=== PATIENT | female | born 1995 | race Caucasian/White ===

== ENCOUNTER 2022-03-21 10:19 | Outpatient (CLI) | payer BC, SELFPAY ==
[2022-03-21 11:41] LABS: Hematocrit 31.8 % (37.0-47.0); Hemoglobin 10.7 g/dL (12.0-15.0)
[2022-03-21 11:51] LABS: Glucose 1 Hour PP 50gm Dose 122 mg/dL
[2022-03-21 12:33] LABS: HIV 1/2 Ab P24 Ag Result Negative (Negative)
[2022-03-23] MEDS: RHO(D) IMMUNE GLOBULIN 300 MCG/2 ML SYRINGE IM (17:05)
== END 2022-03-21 10:20 | disposition home or self-care (01) ==
PROVIDERS: Visit Provider Obstetrics & Gynecology
DX: O36.0130 Maternal care for anti-D [Rh] antibodies, third trimester, not applicable or unspecified (principal); Z36.89 Encounter for other specified antenatal screening; Z3A.00 Weeks of gestation of pregnancy not specified
CPT/HCPCS: 36415; 82947; 85014; 85018; 85461; 86703; 90384; 96372; G0432; J2790

== ENCOUNTER 2022-05-25 15:23 | Emergency (ER) | payer BC, SELFPAY ==
[2022-05-25 15:32] VITALS: BP 98/66; PULSE 136; RESP 20; TEMP 37.2; O2SAT 100
--- NOTE | 2022-05-25 15:35 | ED.URI ---
HPI - URI/Sore Throat General Chief Complaint: Upper Respiratory Infection Stated Complaint: vomitting,cough,congestion,headache Time Seen by Provider: 05/25/22 15:32 Source: patient and RN notes reviewed Mode of arrival: ambulatory Limitations: no limitations History of Present Illness HPI Narrative: 26-year-old female who is in her 3rd trimester presents eyes concern for fever, chills, sweats, nasal congestion, rhinorrhea, body aches that started on Wednesday night. She reports exposure influenza a on Wednesday. She denies taking any medications for her symptoms MD elicited complaint: cough and sore throat Related Data Allergies Allergy/AdvReac Type Severity Reaction Status Date / Time No Known Allergies Allergy Mild Verified 05/25/22 15:36 Review of Systems Review of Systems: CONSTITUTIONAL: Reports malaise, fever. EYES: Denies visual changes, redness, or discharge. ENT: Reports rhinorrhea, congestion. Denies sinus pain, otalgia and sore throat. CARDIOVASCULAR: Denies chest pain, palpitations, or edema. RESPIRATORY: Reports cough. Denies dyspnea. GASTROINTESTINAL: Denies abdominal pain, nausea, vomiting, diarrhea SKIN: Denies rash or itching. MUSCULOSKELETAL: Reports myalgia. NEUROLOGIC: Denies headache. All systems reviewed & are unremarkable except as noted in HPI and below [facility] Family History Family History (Updated 05/09/22 @ 15:42 by Samantha Williamson RN) Grandparent Heart attack Diabetes mellitus Grandparent Diabetes mellitus Social History Social History Substance use: never Spiritual care concerns: No Comments At time of signature, agree with nursing past medical, surgical, social and family history. There is no relevant family history pertinent to the presenting complaint Exam Narrative: GENERAL: Nontoxic-appearing and in no acute distress. HEAD: Normocephalic EYES: PERRLA, conjunctivae clear ENT: Nares clear, turbinates edematous and erythematous, clear discharge. Mucous membranes moist. TM pearly johnson with dull light reflex bilaterally; no tragal tenderness. Oropharynx not erythematous without lesions. Tonsils not enlarged and without exudate, no drooling, no hoarseness, no trismus, uvula midline. NECK: Supple. No lymphadenopathy CHEST: Clear to auscultation, breath sounds equal. No wheezing, rhonchi, rales, or stridor. No respiratory distress, speaks in full sentences. HEART: Regular rate and rhythm. No murmur heard. SKIN: Warm, dry, no rash. NEURO: Alert and oriented x3. PSYCH: Normal mood and affect Course Course Emergency Course: Patient is aware of diagnosis, understands and agrees to treatment plan. Anticipatory guidance given. Patient agrees to follow-up as directed and is aware of reasons to seek care at the emergency department. Portions of this record may have been created with voice recognition software Level of Care: Express Care Visit Vital Signs Vital signs: Vital Signs Temperature 98.9 F 05/25/22 15:32 Pulse Rate 136 H 05/25/22 15:32 Respiratory Rate 20 05/25/22 15:32 Blood Pressure 98/66 L 05/25/22 15:32 Pulse Oximetry 100 05/25/22 15:32 Temperature 98.9 F 05/25/22 15:32 Pulse Rate 136 H 05/25/22 15:32 Respiratory Rate 20 05/25/22 15:32 Blood Pressure 98/66 L 05/25/22 15:32 Pulse Oximetry 100 05/25/22 15:32 Reviewed. MDM - URI/Sore Throat MDM Narrative Medical decision making narrative: Differential diagnosis considered: [place] virus, strep pharyngitis, allergic rhinitis, upper respiratory tract infection, sinusitis, rhinosinusitis, nasopharyngitis. viral pharyngitis, otitis media, otitis externa, pneumonia, bronchitis, viral cough syndrome, viral syndrome, and influenza. Exam findings show no acute concerns or changes; patient is non-toxic appearing and is in no distress. Patient is appropriate for outpatient treatment and follow-up. Lab Data Attestation: I reviewed the patient's lab results. Critical Care Time
== END 2022-05-25 15:49 | disposition home or self-care (01) ==
PROVIDERS: Emergency Provider Nurse Practitioner
DX: J10.1 Influenza due to other identified influenza virus with other respiratory manifestations (principal)
CPT/HCPCS: 87804; 99213; G0463

== ENCOUNTER 2022-06-02 06:33 | Inpatient (IN) | payer BC, SELFPAY ==
[2022-06-02] VITALS (203 sets, daily range): BP systolic 88–165; BP diastolic 41–95; PULSE 63–235; RESP 18; TEMP 36.6–37.3; O2SAT 74–100; BMI 31.0
--- NOTE | 2022-06-02 06:33 | LDADM ---
This patient, Ethel Carlin, was admitted to Labor/Delivery/Recovery 104 on 06/02/22 at 06:33. Plans for labor, pain management and were discussed with patient. Patient/family oriented to hospital policies and general routines including ID bracelet, bed and alarms, visiting hours, pain management, procedures, bathroom and other care routines, personal items, smoking policy, room service/diet and guest tray routines, infant security routines, and visiting hours. Patient/Family are encouraged to report perceived risks to care and to ask questions if they do not understand what they are told or what they should do. See OBIX for further documentation.
[2022-06-02 07:18] LABS: Basophils Percent Auto 0.2 % (0.2-1.2); Eosinophils Absolute Auto 0.1 K/mm3 (0-0.3); Eosinophils Percent Auto 1.1 % (0-4.4); Hematocrit 30.7 % (37.0-47.0); Immature Granulocyte Absolute 0.03 K/mm3 (0.00-0.031); Immature Granulocyte Percent A 0.5 % (0-0.5); Lymphocytes Absolute Auto 1.65 K/mm3 (0.9-3.2); Lymphocytes Percent Auto 25.6 % (18.3-44.2); Mean Corpuscular HGB Conc 32.6 g/dl (32-36); Mean Corpuscular Hemoglobin 27.5 pg (26-34); Mean Corpuscular Volume 84.6 fl (80-100); Mean Platelet Volume 11.8 fl (7.4-10.4); Monocytes Absolute Auto 0.3 K/mm3 (0.1-0.6); Monocytes Percent Auto 4.8 % (2.6-8.5); Neutrophils Absolute Auto 4.4 K/mm3 (1.3-6.7); Neutrophils Percent Auto 67.8 % (45.5-73.1); Platelet Count Result 170 k/mm3 (150-375); Red Blood Count 3.63 M/mm3 (4.2-5.4); Red Cell Distribution Width 15.1 % (11.5-14.5); White Blood Count 6.4 K/mm3 (4.5-10.0)
[2022-06-02] MEDS: LACTATED RINGERS 1,000 ML 125 ML IV CONT ×2 (07:37→10:29)
[2022-06-02] MEDS: OXYTOCIN 30 UNITS/NS 500 ML 30 UNITS/500 ML BAG 6 UNITS IV CONT (07:37)
[2022-06-02] MEDS: AMPICILLIN 2 GM/NS 100 ML 2 GM/100 ML BAG IVPB (07:42)
--- NOTE | 2022-06-02 07:54 | WPDHPUPDATE1 ---
History and Physical Update Update Date/Time: 06/02/22 07:54 26-year-old 2 para 0 at term who presents for elective induction of labor. She reassuring heart tones, cervix is 2-3/80/-2 artificial rupture membranes was performed. Clear fluid. Expectant management. History and Physical has been reviewed, including an updated exam of the patient. There are NO changes in the patient's condition. Risks, benefits, and alternatives have been discussed and questions answered. Patient agrees to proceed with procedure.
--- NOTE | 2022-06-02 10:29 | WPDANESEPPF ---
Anes - Initial Pre Proc Eval Date/Time: 06/02/22 10:29 Surgeon: Mingo Boyle MD Pre Op Diagnosis: iol Patient Data Age: 26 Gender: F Height: 1.57 m Weight: 77 kg Last Vital Signs Pulse 90 06/02/22 10:28 BP 118/85 06/02/22 10:28 Pulse Ox 100 06/02/22 10:27 Allergies Allergy/AdvReac Type Severity Reaction Status Date / Time No Known Allergies Allergy Mild Verified 05/25/22 15:36 Home Medications Medication Instructions Recorded Confirmed Type vits no.126-ferrous fum 1 tablet PO DAILY 06/02/22 06/02/22 History 28 mg iron-folic acid 800 mcg tablet (Classic ) Laboratory Tests 06/02/22 06/02/22 06/02/22 07:04 07:04 07:04 WBC 6.4 K/mm3 K/mm3 (4.5-10.0) RBC 3.63 M/mm3 L M/mm3 (4.2-5.4) Hgb 10.0 g/dL L g/dL (12.0-15.0) Hct 30.7 % L % (37.0-47.0) MCV 84.6 fl fl (80-100) MCH 27.5 pg pg (26-34) MCHC 32.6 g/dl g/dl (32-36) RDW 15.1 % H % (11.5-14.5) Plt Count 170 k/mm3 k/mm3 (150-375) MPV 11.8 fl H fl (7.4-10.4) Immature Gran % (Auto) 0.5 % % (0-0.5) Neut % (Auto) 67.8 % % (45.5-73.1) Lymph % (Auto) 25.6 % % (18.3-44.2) Delta % (Auto) 4.8 % % (2.6-8.5) Eos % (Auto) 1.1 % % (0-4.4) Baso % (Auto) 0.2 % % (0.2-1.2) Lymph # (Auto) 1.65 K/mm3 K/mm3 (0.9-3.2) Delta # (Auto) 0.3 K/mm3 K/mm3 (0.1-0.6) Eos # (Auto) 0.1 K/mm3 K/mm3 (0-0.3) Baso # (Auto) 0.0 K/mm3 K/mm3 (0.0-0.1) Abs Immat Gran (auto) 0.03 K/mm3 K/mm3 (0.00-0.031) Absolute Neuts (auto) 4.4 K/mm3 K/mm3 (1.3-6.7) Absolute Nucleated RBC 0.0 K/mm3 K/mm3 (0.0-0.012) Nucleated RBC % 0.0 % % (0.0-0.2) RPR Pending Blood Type O Negative Antibody Screen Positive Antibody Identification Pending Antigen Identification Pending LOIS, IgG Interpret Pending LOIS, Poly Interpret Pending LOIS, Complement Interp Pending Patient hx anesthesia problems: none Family hx anesthesia problems: none Results Review: All pre-operative results and documents have been reviewed as part of the pre-operative evaluation. [facility] Family History Family History Grandparent Heart attack Diabetes mellitus Grandparent Diabetes mellitus Social History Social History Smoking status: Never smoker Substance use: never Lack of Transportation: No Lack of Food: Never True Current Housing: I Have Housing Concerned About Future Housing: No Difficulty Paying Gas/Electric Bills: No Difficulty Paying for Meds: No Currently Unemployed: No Education: Bachelor's Degree Difficulty w/ Childcare or Family Care: No Spiritual care concerns: No Anes - Eval Final PreProcedure Day of Procedure 06/02/22 10:29 Patient weight: overweight Heart: regular rate and rhythm Lungs: clear to auscultation Neurological: alert and oriented ASA classification: II Emergent: no Anesthetic plan: proceed Anesthesia type and monitoring: regional epidural and standard monitoring Results Review: All pre-operative results and documents have been reviewed as part of the pre-operative evaluation. Informed Consent: The patient's anesthetic plan and its attendant risks and benefits were discussed with the patient/family/POA. Questions were solicited and answers provided to the satisfaction of the patient/family/POA.
[2022-06-02 11:29] LABS: Rapid Plasma Reagin Non-Reactive (NonReactive)
[2022-06-02] MEDS: AMPICILLIN 1 GM/NS 50 ML 1 GM/50 ML BAG IVPB ×2 (11:36→16:22)
--- NOTE | 2022-06-02 19:46 | PM.OBPRVD ---
OB - Delivery Note Procedure Procedure: Induction method: AROM and Per Pitocin Protocol Delivery monitor: External FHT and External Uterine Route of delivery: Episiotomy description: None Laceration Description: Vaginal Delivery repair: vicryl Quantitative Blood Loss (ml): 450 Anesthesia type: Epidural Baby Date of : 06/02/22 Time of : 19:27 Weeks of gestation at delivery: 39 Infant gender: Female Weight (pounds): 7 Weight (ounces): 1 Placenta delivery description: Spontaneous score one minute: 9 score five minutes: 9
--- NOTE | 2022-06-02 22:05 | OBPPTRN ---
Patient transferred to post room #281 via W/C. Support person present. Oriented to unit, room, information board, rooming in, admission packet and security measures. Patient verbalizes understanding.
[2022-06-03 04:10] VITALS: BP 108/67; PULSE 87; RESP 18; TEMP 36.8
[2022-06-03 05:17] LABS: Hematocrit 25.2 % (37.0-47.0); Hemoglobin 8.1 g/dL (12.0-15.0)
--- NOTE | 2022-06-03 07:50 | PM.OBPNVD ---
OB - PN: Subj Subjective Date/time seen: 06/03/22 07:50 s/p vaginal delivery OB - PN: Obj Data Labs 06/03/22 04:08 Labs: Laboratory Results - last 24 hr 06/02/22 06/02/22 06/03/22 07:04 07:04 04:08 Hgb 8.1 L Hct 25.2 L RPR Non-reactive Blood Type O Negative Antibody Screen Positive Antibody Identification Inconclusive Antigen Identification Cancelled LOIS, IgG Interpret Not Performed LOIS, Poly Interpret Neg LOIS, Complement Interp Not Performed Baby's Blood Type Baby's LOIS 06/03/22 04:08 Hgb Hct RPR Blood Type O Negative Antibody Screen TNP Antibody Identification Antigen Identification LOIS, IgG Interpret LOIS, Poly Interpret LOIS, Complement Interp Baby's Blood Type O pos Baby's LOIS Negative OB - PN A/P Plan day: 1 Time Spent With Patient Time: Total time spent is greater than 50% in coordination of care (as documented) at patient's floor/unit and/or counseling patient: Review of Systems Review of Systems: All systems reviewed & are unremarkable except as noted in HPI and below Exam Const: General: cooperative, healthy appearing and comfortable
[2022-06-03 08:10] VITALS: BP 112/71; PULSE 84; RESP 18; TEMP 36.9; O2SAT 97
--- NOTE | 2022-06-03 09:54 | WPDANLDPN2 ---
Anes-Prog Note L&D Date/Time: 06/03/22 09:54 Comfortable throughout: labor Neuraxial method: epidural Epidural/Spinal procedure site: clean & non-tender Neuro status: Neuro function grossly intact. Cardiovascular status: normal Respiratory status: normal Airway patency: baseline Mental status: baseline Post-Op hydration status: normal Vital Signs: Last Vital Signs Temp 98.4 F 06/03/22 08:10 Pulse 84 06/03/22 08:10 Resp 18 06/03/22 08:10 BP 112/71 06/03/22 08:10 Pulse Ox 97 06/03/22 08:10 O2 Del Method Room Air 06/02/22 22:15 Pain score (VAS): 0 Patient feedback: Patient satisfied with anesthetic care.
[2022-06-03] MEDS: MULTIVIT/MIN/PREN/FOL AC/IRON TABLET 1 TAB PO (10:20)
[2022-06-03] MEDS: POLYSACCHARIDE IRON COMPLEX 150 MG CAPSULE PO ×2 (10:21→20:15)
[2022-06-03] MEDS: DOCUSATE SODIUM 100 MG CAPSULE PO ×2 (10:21→20:15)
[2022-06-03 12:00] VITALS: BP 124/73; PULSE 100; RESP 18; TEMP 36.2; O2SAT 98
[2022-06-03] MEDS: RHO(D) IMMUNE GLOBULIN 300 MCG/2 ML SYRINGE IM (15:05)
[2022-06-03 17:40] VITALS: BP 114/74; PULSE 81; RESP 16; TEMP 36.7; O2SAT 99
[2022-06-03 20:15] VITALS: BP 114/70; PULSE 83; RESP 16; TEMP 36.7; O2SAT 97
[2022-06-04 08:00] VITALS: BP 114/74; PULSE 77; RESP 18; TEMP 37.4; O2SAT 99
--- NOTE | 2022-06-04 08:29 | PM.OBPNVD ---
OB - PN: Subj Subjective Date/time seen: 06/04/22 08:29 Patient comments: no complaints, pain well controlled and tolerating diet OB - PN: Obj Data Labs 06/03/22 04:08 Labs: Laboratory Results - last 24 hr 06/03/22 04:08 Blood Type O Negative Antibody Screen TNP Screen Negative Baby's Blood Type O pos Baby's LOIS Negative Doses of RhIg Required 1 OB - PN A/P Plan day: 2 Plan: routine care and discharge home Time Spent With Patient Time: Total time spent is greater than 50% in coordination of care (as documented) at patient's floor/unit and/or counseling patient: Exam Const: General: comfortable and no acute distress Resp: Effort & Inspection: normal respiratory effort Auscultation: no rales, no rhonchi and no wheezes Cardio: Rate: regular rate Heart sounds: no click, no murmurs and no rubs GI: GI Palp: Yes Soft to palpation and No Tenderness to palpation present (GI) Auscultation: normal bowel sounds Extrem: General: normal to inspection, no pedal edema and no calf tenderness
--- NOTE | 2022-06-04 08:30 | PM.OBDSVD ---
DS: Admitting Diagnosis Discharge Date 06/04/22 Admitting Diagnosis term OB - DS: Summary OB Procedures : None OB Procedures Intrapartum: OB Procedures: : None Time Spent with Patient Time attestation: Total time spent providing and/or coordinating discharge services: DS: Data Data Completed and Pending Labs on day of discharge: Labs from last 24 hours 06/03/22 04:08 Blood Type O Negative Antibody Screen TNP Screen Negative Baby's Blood Type O pos Baby's LOIS Negative Doses of RhIg Required 1 Discharge Plan Discharge Discharging Clinician: Mingo Boyle Patient Disposition: Home, Self-Care Activity: pelvic rest Diet: regular Discharge Instructions: Education: Mom and Baby Guide Given to: Mother Follow-Up: Call your delivering provider's office for an appointment to be seen in: 6 Weeks Mom and baby [facility] come [facility] for the follow-up appointment. Appointment Date/Time: June 05, 2022 at 11:00 am What to expect at your follow-up visit: Blood Pressure Check Call [phone] if you are unable to keep your appointment time. BREAST CARE: * Wear a snug supportive bra. * For engorgement discomfort: Breast Feeding: * Apply warm moist washcloths * Express milk as needed to relieve engorgement * Wear loose clothing Bottle Feeding: * May apply ice packs * For sore nipples: * Identify correct latch-on * Apply warm moist washcloths before and after nursing * Air dry nipples after nursing * May apply Lansinoh cream to nipples /PERINEAL CARE: * Until bleeding stops, use your destiny bottle after urinating * Change your pad frequently throughout the day * You may take sitz baths several times a day (fill your bathtub with warm water and soak for 20 minutes.) Do NOT bathe in the water * No tub baths until seen by your physician - You may shower ACTIVITY: * Rest as much as possible. * Do not exercise or lift anything heavier than your baby (such as laundry or other children.) * Avoid stairs or driving as much as possible. * Do not put anything into the vagina. No douching, tampons, or sexual activity until seen by physician. NOTIFY PHYSICIAN IF YOU HAVE ANY QUESTIONS OR IF ANY OF THE FOLLOWING SYMPTOMS OCCUR: * If your perineum becomes red, swollen, or more painful than what you have experienced in the hospital. * If your vaginal bleeding becomes foul smelling. * If your vaginal bleeding becomes more heavy than a period or if your bleeding changes from pink to bright red. However, you may pass an occasional walnut-sized clot once or twice for the first week . * If you experience a sharp, shooting pain in you calves. * If you discover a hard, reddened area on your breast or if you experience flu-like symptoms. * If you have a fever of 100.4 or greater DIET: * Eat regular, well-balanced meals. * Drink plenty of fluids daily. If , drink to thirst. Patient Instructions: Antibiotic Form Stand Alone Forms: General Discharge Information Follow-up/Referrals: Mingo Boyle MD [Physician] - Discharge Medications: No Action Classic 28 mg iron- 800 mcg Tablet 1 tablet PO DAILY Date of admission: 06/02/22 06:33 Primary Care Provider: UNKNOWN,DOCTOR Admitting Provider: Mingo Boyle Attending physician on admission: Mingo Boyle Condition: Stable
[2022-06-04 09:00] VITALS: PULSE 77; RESP 18; O2SAT 99
--- NOTE | 2022-06-04 09:00 | PC.NURSE ---
PT introductions made and plan of care discussed per post , pain management, breast feeding, bottle feeding, daily care activities and pending discharge to home. PT and spouse both recipients of such instructions and no barriers to learning identified at this time. PT received such instructions per one to one discussion , mom baby care guide and demonstrations this shift. PT verbalized understanding of such care.
[2022-06-04] MEDS: LANOLIN (LANSINOH) 7.5 GM CREAM 1 APPLIC TOPICAL (09:53)
[2022-06-04] MEDS: DOCUSATE SODIUM 100 MG CAPSULE PO (09:53)
[2022-06-04] MEDS: POLYSACCHARIDE IRON COMPLEX 150 MG CAPSULE PO (09:53)
[2022-06-04] MEDS: MULTIVIT/MIN/PREN/FOL AC/IRON TABLET 1 TAB PO (09:53)
[2022-06-04] MEDS: TETANUS,DIPHTHERIA,AC PERTUSSIS ADULT (0.5 ML) BOOSTRIX IM (09:54)
--- NOTE | 2022-06-04 12:52 | PC.NURSE ---
PT discharged to home ambulatory accompanied by both spouse and infant and taken to waiting car. follow up appts confirmed
[2022-06-05 11:25] VITALS: BP 124/85; PULSE 101; RESP 20; TEMP 36.8; O2SAT 99
== END 2022-06-04 12:52 | disposition home or self-care (01) | DRG 807 ==
LOC: ANHLDR 06:36 → ANHOB2 22:07
PROVIDERS: Admitting Provider Obstetrics & Gynecology; Visit Provider Obstetrics & Gynecology
DX: O99.824 Streptococcus B carrier state complicating childbirth (principal); Z37.0 Single live birth; Z3A.39 39 weeks gestation of pregnancy; O69.81X0 Labor and delivery complicated by cord around neck, without compression, not applicable or unspecified; O71.4 Obstetric high vaginal laceration alone
CPT/HCPCS: 36415; 85014; 85018; 85025; 85461; 86592; 86850; 86880; 86900; 86901; 86902; 90384; 90715; A9270; J0290; J2590; J2790; J2795; J7120

== ENCOUNTER 2023-04-17 10:59 | Emergency (ER) | payer BC, SELFPAY ==
[2023-04-17 11:25] VITALS: BP 114/75; PULSE 87; RESP 16; TEMP 36.9; O2SAT 99
--- NOTE | 2023-04-17 12:10 | ED.EYEPROB ---
HPI - Eye Problem General Chief complaint: Eye Problems Stated complaint: pink eye Source: patient, RN notes reviewed and old records reviewed Mode of arrival: ambulatory Limitations: no limitations History of Present Illness HPI Narrative: 27 year old female who presents t express care with complaints of redness and some mucous drainage from her left eye which stared this morning. Daughter is with patient who also has drainage from her eyes for the past 2 days. Patient reports no acute pain to her left eye or any change in vision. MD chief complaint: eye redness Onset (ago): day(s) (this morning) Location: left eye Eye Symptoms: redness and discharge Severity scale (1-10): 2 If Pain, Quality: other (itching and soreness) Related Data Home Medications Medication Instructions Recorded Confirmed amoxicillin 500 mg capsule 500 mg PO DAILY 04/17/23 04/17/23 Allergies Allergy/AdvReac Type Severity Reaction Status Date / Time No Known Allergies Allergy Mild Verified 04/17/23 11:56 Review of Systems Review of Systems: CONSTITUTIONAL: Denies fever, chills, or sweats. EYES: Denies visual changes. Reports redness, irritation, discharge left eye. ENT: Denies rhinorrhea, congestion, sore throat, or otalgia. CARDIOVASCULAR: Denies chest pain, palpitations, or edema. RESPIRATORY: Denies cough or dyspnea. SKIN: Denies rash or itching. NEUROLOGIC: Denies headache PMFSH Past Medical History Medical History (Updated 04/18/23 @ 19:34 by Suyapa Adams NP) UTI (urinary tract infection) Surgical History Surgical History (Updated 04/18/23 @ 19:34 by Suyapa Adams NP) History of repair of anterior cruciate ligament of left knee x2 S/P wisdom tooth extraction Family History Family History Grandparent Heart attack Diabetes mellitus Grandparent Diabetes mellitus Social History Social History Smoking status: Never smoker Substance use: never Lack of Transportation: No Lack of Food: Never True Current Housing: I Have Housing Concerned About Future Housing: No Difficulty Paying Gas/Electric Bills: No Difficulty Paying for Meds: No Currently Unemployed: No Education: Bachelor's Degree Difficulty w/ Childcare or Family Care: No Spiritual care concerns: No Comments At time of signature, agree with nursing past medical, surgical, social and family history. There is no relevant family history pertinent to the presenting complaint Exam Narrative: GENERAL: Well-appearing, well-nourished, and in no acute distress. HEAD: Normocephalic, atraumatic. EYES: PERRLA and EOMI. Upper and lower eyelids unremarkable. No periorbital cellulitis noted. Sclera and conjunctivae injected left eye ENT: Nares clear, no rhinorrhea or epistaxis. Mucous membranes moist. NECK: Supple. no lymphadenopathy CHEST: Clear to auscultation. No respiratory distress.SAO2 99% on room air HEART: Regular rate and rhythm. No murmur heard. Normal peripheral pulses. SKIN: Warm, dry, no rash. NEURO: No focal deficits. Alert and oriented x3. Course Course Emergency Course: Patient is aware of diagnosis, understands and agrees to treatment plan. Anticipatory guidance given. Patient agrees to follow-up as directed and is aware of reasons to seek care at the emergency department. Portions of this record may have been created with voice recognition software Level of Care: Express Care Visit Vital Signs Vital signs: Vital Signs Temperature 36.9 C 04/17/23 11:25 Pulse Rate 87 04/17/23 11:25 Respiratory Rate 16 04/17/23 11:25 Blood Pressure 114/75 04/17/23 11:25 Pulse Oximetry 99 04/17/23 11:25 Temperature 36.9 C 04/17/23 11:25 Pulse Rate 87 04/17/23 11:25 Respiratory Rate 16 04/17/23 11:25 Blood Pressure 114/75 04/17/23 11:25 Pulse Oximetry 99 04/17/23 11:25
== END 2023-04-17 12:15 | disposition home or self-care (01) ==
PROVIDERS: Emergency Provider Registered Nurse
DX: H10.9 Unspecified conjunctivitis (principal)
CPT/HCPCS: 99213; G0463

== ENCOUNTER 2023-12-23 08:57 | Outpatient (RCR) | payer BC, SELFPAY ==
[2023-12-23 10:45] LABS: Hematocrit 31.1 % (37.0-47.0); Hemoglobin 9.8 g/dL (12.0-15.0)
[2023-12-23 10:58] LABS: Glucose 1 Hour PP 50gm Dose 133 mg/dL
[2023-12-23 11:51] LABS: HIV 1/2 Ab P24 Ag Result Negative (Negative)
[2023-12-23] MEDS: RHO(D) IMMUNE GLOBULIN 300 MCG/2 ML SYRINGE IM (14:34)
[2023-12-23 18:22] LABS: Rapid Plasma Reagin Non-Reactive (NonReactive)
== END 2024-03-22 23:59 | disposition home or self-care (01) ==
LOC: ANHLAB 08:57
PROVIDERS: Visit Provider Obstetrics & Gynecology
DX: Z11.4 Encounter for screening for human immunodeficiency virus [HIV] (principal); Z11.3 Encounter for screening for infections with a predominantly sexual mode of transmission; Z29.13 Encounter for prophylactic Rho(D) immune globulin; O36.0130 Maternal care for anti-D [Rh] antibodies, third trimester, not applicable or unspecified; Z3A.00 Weeks of gestation of pregnancy not specified
CPT/HCPCS: 36415; 82947; 85014; 85018; 85461; 86592; 86703; 86850; 86900; 86901; 90384; 96372; G0432; J2790

== ENCOUNTER 2024-03-23 22:51 | Inpatient (IN) | payer BC, SELFPAY ==
[2024-03-23] VITALS (17 sets, daily range): BP systolic 116–128; BP diastolic 78–105; PULSE 76–100; TEMP 36.7; O2SAT 98–100
[2024-03-23] MEDS: LACTATED RINGERS 1,000 ML 125 ML IV CONT (23:20)
[2024-03-23] MEDS: AMPICILLIN 2 GM/NS 100 ML 2 GM/100 ML BAG IVPB (23:20)
[2024-03-23 23:35] LABS: Basophils Percent Auto 0.2 % (0.2-1.2); Eosinophils Absolute Auto 0.1 K/mm3 (0-0.3); Eosinophils Percent Auto 0.6 % (0-4.4); Hemoglobin 10.5 g/dL (12.0-15.0); Immature Granulocyte Absolute 0.04 K/mm3 (0.00-0.031); Immature Granulocyte Percent A 0.4 % (0-0.5); Lymphocytes Absolute Auto 2.35 K/mm3 (0.9-3.2); Lymphocytes Percent Auto 23.3 % (18.3-44.2); Mean Corpuscular HGB Conc 31.8 g/dl (32-36); Mean Corpuscular Hemoglobin 26.1 pg (26-34); Mean Corpuscular Volume 82.1 fl (80-100); Mean Platelet Volume 11.5 fl (7.4-10.4); Monocytes Absolute Auto 0.7 K/mm3 (0.1-0.6); Monocytes Percent Auto 6.5 % (2.6-8.5); Platelet Count Result 208 k/mm3 (150-375); Red Blood Count 4.02 M/mm3 (4.2-5.4); Red Cell Distribution Width 16.7 % (11.5-14.5); White Blood Count 10.1 K/mm3 (4.5-10.0)
[2024-03-24] VITALS (160 sets, daily range): BP systolic 76–139; BP diastolic 27–78; PULSE 53–135; RESP 16–18; TEMP 36.6–37.3; O2SAT 80–100; BMI 32.9
[2024-03-24 00:09] LABS: Rapid Plasma Reagin Non-Reactive (NonReactive)
--- NOTE | 2024-03-24 00:14 | WPDANESEPP ---
Anes - Eval Pre Procedure Procedure: Labor epidural Date/Time: 03/24/24 00:14 Surgeon: Tamar Preop Diagnosis: Abdominal pain with contractions Pre Op Diagnosis: IOL Patient Data Age: 28 Gender: F Height: Weight: Last Vital Signs Pulse 80 03/24/24 00:00 BP 129/72 03/24/24 00:00 Pulse Ox 80 L 03/24/24 00:13 Allergies Allergy/AdvReac Type Severity Reaction Status Date / Time No Known Allergies Allergy Mild Verified 04/17/23 11:56 Home Medications Medication Instructions Recorded Confirmed Type prenat.vits,paulina,bhq-rerg-fexoc 1 tablet 03/03/24 History Laboratory Tests 03/23/24 23:22 WBC 10.1 H K/mm3 (4.5-10.0) RBC 4.02 L M/mm3 (4.2-5.4) Hgb 10.5 L g/dL (12.0-15.0) Hct 33.0 L % (37.0-47.0) MCV 82.1 fl (80-100) MCH 26.1 pg (26-34) MCHC 31.8 L g/dl (32-36) RDW 16.7 H % (11.5-14.5) Plt Count 208 k/mm3 (150-375) MPV 11.5 H fl (7.4-10.4) Immature Gran % (Auto) 0.4 % (0-0.5) Neut % (Auto) 69.0 % (45.5-73.1) Lymph % (Auto) 23.3 % (18.3-44.2) [place] % (Auto) 6.5 % (2.6-8.5) Eos % (Auto) 0.6 % (0-4.4) Baso % (Auto) 0.2 % (0.2-1.2) Lymph # (Auto) 2.35 K/mm3 (0.9-3.2) [place] # (Auto) 0.7 H K/mm3 (0.1-0.6) Eos # (Auto) 0.1 K/mm3 (0-0.3) Baso # (Auto) 0.0 K/mm3 (0.0-0.1) Abs Immat Gran (auto) 0.04 H K/mm3 (0.00-0.031) Absolute Neuts (auto) 7.0 H K/mm3 (1.3-6.7) Absolute Nucleated RBC 0.000 K/mm3 (0.0-0.012) Nucleated RBC % 0.0 % (0.0-0.2) RPR Non-reactive (NonReactive) HIV 1&2 Ab/P24 Ag 4thGn Pending Blood Type Pending Antibody Screen Pending : gestational age HCG: positive Patient hx anesthesia problems: none Family hx anesthesia problems: none Results Review: All pre-operative results and documents have been reviewed as part of the pre-operative evaluation. [facility] Past Medical History Medical History Anxiety and depression Obesity UTI (urinary tract infection) Surgical History Surgical History History of repair of anterior cruciate ligament of left knee x2 S/P wisdom tooth extraction Family History Family History Grandparent Heart attack Diabetes mellitus Grandparent Diabetes mellitus Social History Social History Smoking status: Never smoker Substance use: never Lack of Transportation: No Lack of Food: Never True Current Housing: I Have Housing Concerned About Future Housing: No Difficulty Paying Gas/Electric Bills: No Difficulty Paying for Meds: No Currently Unemployed: No Education: Bachelor's Degree Difficulty w/ Childcare or Family Care: No Spiritual care concerns: No Exam Day of Procedure 03/24/24 00:14 Patient weight: obese Airway: Mallampati scale class II
[2024-03-24 00:27] LABS: HIV 1/2 Ab P24 Ag Result Negative (Negative)
[2024-03-24] MEDS: LACTATED RINGERS 1,000 ML 125 ML IV CONT (00:53)
--- NOTE | 2024-03-24 00:56 | LDADM ---
This patient, Ethel Carlin, was admitted to Labor/Delivery/Recovery 105 on 03/23/24 at 22:51. Plans for labor, pain management and were discussed with patient. Patient/family oriented to hospital policies and general routines including ID bracelet, bed and alarms, visiting hours, pain management, procedures, bathroom and other care routines, personal items, smoking policy, room service/diet and guest tray routines, infant security routines, and visiting hours. Patient/Family are encouraged to report perceived risks to care and to ask questions if they do not understand what they are told or what they should do. See OBIX for further documentation.
[2024-03-24] MEDS: AMPICILLIN 1 GM/NS 50 ML 1 GM/50 ML BAG IVPB (03:39)
[2024-03-24] MEDS: OXYTOCIN 30 UNITS/NS 500 ML 30 UNITS/500 ML BAG 999 UNITS IV CONT (07:30)
[2024-03-24] MEDS: miSOPROStol 200 MCG TABLET 1000 MCG (07:33)
--- NOTE | 2024-03-24 08:03 | WPDHPUPDATE1 ---
History and Physical Update Update Date/Time: 03/24/24 08:03 term labor - srom, multip History and Physical has been reviewed, including an updated exam of the patient. There are NO changes in the patient's condition. Risks, benefits, and alternatives have been discussed and questions answered. Patient agrees to proceed with procedure.
[2024-03-24] MEDS: OXYTOCIN 30 UNITS/NS 500 ML 30 UNITS/500 ML BAG 125 UNITS IV CONT (08:04)
--- NOTE | 2024-03-24 08:04 | PM.OBPRVD ---
OB - Vaginal Delivery Note Procedure Delivery date: 03/24/24 Induction method: None Delivery monitor: External FHT and External Uterine Route of delivery: Laceration Description: Perineal - 1st Degree Delivery repair: vicryl Specimen: No Anesthesia type: Epidural Disposition: Floor Complications: No immediate complications [place] Baby Date of : 03/24/24 Gestational Age by Date: 39
[2024-03-24] MEDS: BENZOCAINE 20% AER SPR (*SP) 56 GM CAN 1 SPRAY TOPICAL (10:05)
[2024-03-24] MEDS: IBUPROFEN 600 MG TABLET PO (10:05)
[2024-03-24] MEDS: ACETAMINOPHEN 325 MG TABLET 650 MG PO (10:05)
[2024-03-24] MEDS: WITCH HAZEL 40 PADS 1 PAD TOPICAL (10:05)
--- NOTE | 2024-03-24 10:55 | PC.NURSE ---
Patient transferred to post room #290 via wheelchair. Support person present. Oriented to unit, room, information board, rooming in, admission packet and security measures. Patient verbalizes understanding.
--- NOTE | 2024-03-24 11:10 | PC.NURSE ---
1055 Pt up out of bed w/standby assistance to bathroom. Bleeding scant, new gown on and pads changed. pt in wheelchair taken to PP with dad, baby, and 2 other family members with belongings. updated report given to PP nurse. pt tolerated transfer. no questions/complaints.
--- NOTE | 2024-03-24 15:57 | PC.NURSE ---
1300. Consulted with mother concerning needs and she shared her ability to independently latch infant optimally without pain. Mom reports infant just had a feed and is not due at this time, but will call with infants next latch for to come and assess latch. Reinforced understanding of milk production, transition of milk, signs of adequate intake, transition of stool, prevention/relief of engorgement, plugged ducts, mastitis, responsive watching for feeding cues, the different methods of stimulating to breastfeed 1-3 hours after the start of the last feeding, community resources, and when to call a provider using the resource of the feeding sheet along with the mom and baby guide. Mother voiced understanding of the information shared. Reported to the Primary RN.
[2024-03-25 03:00] VITALS: BP 94/62; PULSE 81; RESP 20; TEMP 36.8; O2SAT 99
[2024-03-25 03:46] LABS: Hematocrit 23.3 % (37.0-47.0); Hemoglobin 7.6 g/dL (12.0-15.0)
[2024-03-25] MEDS: IBUPROFEN 600 MG TABLET PO (06:44)
[2024-03-25] MEDS: MULTIVIT/MIN/PREN/FOL AC/IRON TABLET 1 TAB PO (06:44)
[2024-03-25] MEDS: POLYSACCHARIDE IRON COMPLEX 150 MG CAPSULE PO (06:45)
[2024-03-25] MEDS: DOCUSATE SODIUM 100 MG CAPSULE PO (06:45)
[2024-03-25 07:30] VITALS: BP 98/61; PULSE 75; RESP 18; TEMP 36.4; O2SAT 99
--- NOTE | 2024-03-25 08:38 | PM.OBPNVD ---
OB - PN: Subj Subjective Date/time seen: 03/25/24 08:38 Patient comments: no complaints, pain well controlled, incisional pain, tolerating diet and flatus present OB - PN: Obj Data Labs 03/25/24 03:29 Labs: Laboratory Results - last 24 hr 03/25/24 03:29 Hgb 7.6 L Hct 23.3 L Blood Type O Negative Antibody Screen Negative Screen Not Reportable Baby's Blood Type O pos Baby's LOIS Negative Doses of RhIg Required 1 OB - PN A/P Assessment and Plan (1) Anemia: Code(s): D64.9 - Anemia, unspecified Status: Acute Plan day: 1 Plan: routine care Comments: No problems, routine care, asymptomatic anemia - problem addressed, no blood Time Spent With Patient Time: Total time spent is greater than 50% in coordination of care (as documented) at patient's floor/unit and/or counseling patient: Exam Const: General: comfortable, no acute distress and alert Resp: Effort & Inspection: normal respiratory effort Auscultation: no crackles, no rales and no rhonchi Cardio: Rate: regular rate Heart sounds: no click, no murmurs and no rubs GI: Inspection: non-distended GI Palp: No Tenderness to palpation present (GI) Auscultation: normal bowel sounds Other: Incision - CDI Extrem: General: normal to inspection, no pedal edema and no calf tenderness
--- NOTE | 2024-03-25 08:39 | PM.OBDSVD ---
DS: Admitting Diagnosis Discharge Date 03/25/24 Admitting Diagnosis term DS: Discharge Diagnosis Discharge Diagnosis (1) Term delivered: Code(s): O80 - Encounter for full-term uncomplicated delivery Status: Acute OB - DS: Summary OB Procedures : None OB Procedures Intrapartum: Spontaneous Vag Delivery OB Procedures: : None Peripartum Data Laceration Description: Perineal - 1st Degree Time Spent with Patient Time attestation: Total time spent providing and/or coordinating discharge services: DS: Data Data Completed and Pending Labs on day of discharge: Labs from last 24 hours 03/25/24 03:29 Hgb 7.6 L Hct 23.3 L Blood Type O Negative Antibody Screen Negative Screen Not Reportable Baby's Blood Type O pos Baby's LOIS Negative Doses of RhIg Required 1 Discharge Plan Discharge Discharging Clinician: Orion Boyle Patient Disposition: Home, Self-Care Activity: as tolerated Diet: as tolerated Discharge Instructions: Education: Mom and Baby Guide Given to: Mother Follow-Up: Call your delivering provider's office for an appointment to be seen in: 4 Weeks Mom and baby should come to the [facility] for the follow-up appointment. Appointment Date/Time: March 27, 2024 at 11:00 am What to expect at your follow-up visit: Call [phone] if you are unable to keep your appointment time. BREAST CARE: * Wear a snug supportive bra. * For engorgement discomfort: Breast Feeding: * Apply warm moist washcloths * Express milk as needed to relieve engorgement * Wear loose clothing Bottle Feeding: * May apply ice packs * For sore nipples: * Identify correct latch-on * Apply warm moist washcloths before and after nursing * Air dry nipples after nursing * May apply Lansinoh cream to nipples ABDOMINAL INCISION: (if applicable) * Allow incision to air dry * Do NOT use lotions for powders on your incision * When showering, allow soap and water to run over the incision, but do not wash incision EPISIOTOMY/PERINEAL CARE: * Until bleeding stops, use your destiny bottle after urinating * Change your pad frequently throughout the day * You may take sitz baths several times a day (fill your bathtub with warm water and soak for 20 minutes.) Do NOT bathe in the water * No tub baths until seen by your physician - You may shower ACTIVITY: * Rest as much as possible. * Do not exercise or lift anything heavier than your baby (such as laundry or other children.) * Avoid stairs or driving as much as possible. * Do not put anything into the vagina. No douching, tampons, or sexual activity until seen by physician. NOTIFY PHYSICIAN IF YOU HAVE ANY QUESTIONS OR IF ANY OF THE FOLLOWING SYMPTOMS OCCUR: * If your episiotomy or incision becomes red, swollen, or more painful than what you have experienced in the hospital. * If your vaginal bleeding becomes foul smelling. * If your vaginal bleeding becomes more heavy than a period or if your bleeding changes from pink to bright red. However, you may pass an occasional walnut-sized clot once or twice for the first week . * If you experience a sharp, shooting pain in you calves. * If you discover a hard, reddened area on your breast or if you experience flu-like symptoms. DIET: * Eat regular, well-balanced meals. * Drink plenty of fluids daily. If , drink to thirst. Patient Instructions: Caring for Your Baby (DC), Your Baby (DC), Vaginal Delivery (DC) Stand Alone Forms: General Discharge Information Follow-up/Referrals: Orion Boyle MD [Physician] - Discharge Medications: Discontinued #2 Tablet 1 tablet Date of admission: 03/23/24 22:51 Primary Care Provider: UNKNOWN,DOCTOR Admitting Provider: Evelia
[2024-03-25] MEDS: RHO(D) IMMUNE GLOBULIN 300 MCG/2 ML SYRINGE IM (12:01)
[2024-03-25] MEDS: INFLUENZA TRIVALENT VACCINE 45 MCG/0.5 ML SYRINGE (12:03)
[2024-03-27 11:25] VITALS: BP 114/73; PULSE 87; RESP 18; TEMP 36.9; O2SAT 100
== END 2024-03-25 13:00 | disposition home or self-care (01) | DRG 807 ==
LOC: ANHLDR 23:22 → ANHOB2 03-24 11:08
PROVIDERS: Admitting Provider Obstetrics & Gynecology; Visit Provider Obstetrics & Gynecology
DX: O99.824 Streptococcus B carrier state complicating childbirth (principal); O70.0 First degree perineal laceration during delivery; Z37.0 Single live birth; Z23 Encounter for immunization; Z3A.39 39 weeks gestation of pregnancy
CPT/HCPCS: 36415; 85014; 85018; 85025; 85461; 86592; 86703; 86850; 86900; 86901; 90384; 90471; 90656; A9270; G0008; G0432; J0290; J2003; J2590; J2790; J2795; J7120

== ENCOUNTER 2024-04-26 09:02 | Emergency (ER) | payer BC, SELFPAY ==
[2024-04-26 09:10] VITALS: BP 146/86; PULSE 80; RESP 16; TEMP 36.7; O2SAT 100
[2024-04-26 10:21] VITALS: BP 140/73; PULSE 74; RESP 16; TEMP 36.6; O2SAT 94
== END 2024-04-26 11:06 | disposition left against medical advice (07) ==
PROVIDERS: PCP Obstetrics & Gynecology
DX: N64.4 Mastodynia (principal)
CPT/HCPCS: 99199

== ENCOUNTER 2024-04-26 11:40 | Outpatient (CLI) | payer BC, SELFPAY ==
--- NOTE | ~2024-04-26 | US_ITS ---
EXAMINATION TYPE: US breast LT limited COMPARISON: NONE REASON FOR STUDY: MASS ON LT BREAST TECHNIQUE: Targeted sonographic evaluation of the left breast was performed. INTERPRETATION: At the 6:00 position left breast, 5 cm from the nipple, there is a 4.6 x 2.7 x 4.5 cm complex cystic mass, wider than tall. Lesion is fairly circumscribed peripherally, but is heterogeneous, with comple x cystic components and irregular nodular surface more solid-appearing components. IMPRESSION: 4.6 x 2.7 x 4.5 cm complex cystic mass in the 6:00 position left breast, as detailed above. Likely di agnostic considerations include galactocele versus abscess or superinfected galactocele. Necrotic erin plasm felt to be unlikely given patient age and reported rapid onset of symptoms/mass. Consider aspir ation and/or incision and drainage as indicated. Follow-up imaging can be pursued as clinically warra nted, especially the lesion fails to resolve. Case discussed with nurse jeremias Ramirez at the time of this reading. BI-RADS CATEGORY: BI-RADS 3: Probably benign Reviewed, dictated and finalized at location . PS ENGINEER IMPRESSION: 4.6 x 2.7 x 4.5 cm complex cystic mass in the 6:00 position left breast, as det [place] above. Likely diagnostic considerations include galactocele versus absces s or superinfected galactocele. Necrotic neoplasm felt to be unlikely given pat ient age and reported rapid onset of symptoms/mass. Consider aspiration and/or incision and drainage as indicated. Follow-up imaging can be pursued as clinica lly warranted, especially the lesion fails to resolve. Case discussed with nurse jeremias Ramirez at the time of this reading. BI-RADS CATEGORY: BI-RADS 3: Probably benign
== END 2024-04-26 11:41 | disposition home or self-care (01) ==
LOC: ANHIMG 11:44
PROVIDERS: PCP Obstetrics & Gynecology; Visit Provider Advanced Practice Midwife
DX: N60.12 Diffuse cystic mastopathy of left breast (principal)
CPT/HCPCS: 76642